=== PATIENT | female | born 1985 | race Caucasian/White ===

== ENCOUNTER → 2016-12-12 | Outpatient (CLI) | payer BC ==
[~2016-12-12] MED LIST: LUBI8CAP4 PO; MULT-506 PO; NITR100C43 PO
[2016-12-16 01:04] LABS: GLIADIN DEAMIDATED IgA AB 9 UNITS (<20); GLIADIN DEAMIDATED IgG AB 4 UNITS (<20); RETICULIN IgA AB Negative (Negative)
== END | disposition home or self-care (01) ==
LOC: C.LAB 10:48
PROVIDERS: ATTEND Nurse Practitioner Adult Health
DX: K59.09 Other constipation (principal)

== ENCOUNTER → 2017-04-12 | Outpatient (CLI) | payer BC ==
[~2017-04-12] MED LIST changes: +NITR100C41 PO; -NITR100C43 PO
== END | disposition home or self-care (01) ==
LOC: C.PAPS 16:37
PROVIDERS: ATTEND Obstetrics & Gynecology
DX: Z01.419 Encounter for gynecological examination (general) (routine) without abnormal findings (principal)

== ENCOUNTER → 2018-04-22 | Outpatient (CLI) | payer BC ==
[~2018-04-22] MED LIST changes: -NITR100C41 PO; +NITR100C43 PO
== END | disposition home or self-care (01) ==
LOC: C.PAPS 17:51
PROVIDERS: ATTEND Obstetrics & Gynecology
DX: Z01.419 Encounter for gynecological examination (general) (routine) without abnormal findings (principal)